=== PATIENT | female | born 1990 | race Asian ===

== ENCOUNTER 2020-09-24 19:46 | Inpatient (IN) ==
[2020-09-24 20:42] LABS: Urine Benzodiazepine Screen None Detected (None Detect); Urine Cannabinoids Screen None Detected (None Detect); Urine Opiates Screen None Detected (None Detect)
[2020-09-24] MEDS ORDERED: Lactated Ringers 1000 ml BAG 1,000 ML IV ONE (21:37)
[2020-09-24] MEDS ORDERED: Buffered Lidocaine 1% SYRIN 1 ml INTRADERM ONE (21:37)
[2020-09-25] MEDS ORDERED: Dibucaine 1% OINT 28.35 GM TUBE PR PRN (00:44)
[2020-09-25] MEDS ORDERED: Witch Hazel PAD JAR TOPICAL PRN (00:44)
[2020-09-25] MEDS ORDERED: Lactated Ringers 1000 ml BAG 1,000 ML IV SCH (01:00)
[2020-09-25] MEDS ORDERED: Oxytocin 10 UNITS/ML 1 ML VIAL ONE (02:11)
[2020-09-25 10:51] LABS: ABS Neutrophils 10.7 10^3/ul (1.5-7.7); Eosinophil % 0.1 %; Hematocrit 31 % (35-47); Hemoglobin 9.9 g/dL (12.0-16.0); Lymphocyte % 14.7 %; Mean Corpuscular HGB Conc 33 g/dL (31-36); Mean Corpuscular Hemoglobin 28 pg (27-31); Mean Corpuscular Volume 87 fL (80-97); Mean Platelet Volume 9.5 fL (7.4-10.4); Platelet Count 195 10^3/uL (150-450); Red Cell Distribution Width 16 % (10-15); White Blood Count 13.8 10^3/uL (3.5-10.8)
[2020-09-26 08:37] VITALS: BP 126/75
[2020-09-26] MEDS ORDERED: Tetan/Diph/Pertus SYR(Tdap) 0.5 ML SYR(BOOSTRIX) use SYR contains LATEX IM ONE (10:55)
== END 2020-09-26 11:40 | disposition home or self-care (01) | DRG 560 ==
LOC: MCHOBOUT 19:46 → MCHOB 20:46
PROVIDERS: ADMIT Obstetrics & Gynecology; ATTEND Obstetrics & Gynecology

== ENCOUNTER 2022-01-15 11:10 | Inpatient (IN) ==
[2022-01-15] MEDS ORDERED: Lactated Ringers 1000 ml BAG 1,000 ML IV ONE (12:51)
[2022-01-15] MEDS ORDERED: Buffered Lidocaine 1% SYRIN 1 ml INTRADERM ONE (12:51)
[2022-01-15] MEDS ORDERED: Lactated Ringers 1000 ml BAG 1,000 ML IV SCH ×2 (13:00→18:00)
[2022-01-15] MEDS ORDERED: Oxytocin in LR 20,000 MILLI.UNIT/1,000 ML BAG IV SCH ×2 (13:00→17:15)
[2022-01-15 13:39] LABS: Urine Benzodiazepine Screen None Detected (None Detect); Urine Cannabinoids Screen None Detected (None Detect); Urine Opiates Screen None Detected (None Detect)
[2022-01-15 14:21] LABS: ABS Eosinophils 0.1 10^3/ul (0-0.6); ABS Lymphocytes 1.9 10^3/ul (1.0-4.8); ABS Monocytes 0.5 10^3/ul (0-0.8); ABS Neutrophils 4.9 10^3/ul (1.5-7.7); Hematocrit 33 % (35-47); Hemoglobin 11.2 g/dL (12.0-16.0); Lymphocyte % 25.8 %; Mean Corpuscular HGB Conc 34 g/dL (31-36); Mean Corpuscular Hemoglobin 28 pg (27-31); Mean Corpuscular Volume 84 fL (80-97); Mean Platelet Volume 10.1 fL (7.4-10.4); Platelet Count 207 10^3/uL (150-450); Red Blood Count 3.98 10^6 /uL (3.70-4.87); Red Cell Distribution Width 17 % (10-15); White Blood Count 7.5 10^3/uL (3.5-10.8)
[2022-01-15] MEDS ORDERED: Witch Hazel PAD JAR TOPICAL PRN (17:11)
[2022-01-15] MEDS ORDERED: Glycerin ADULT 2.4 gm SUPP PR PRN (17:11)
[2022-01-15] MEDS ORDERED: Dibucaine 1% OINT 28.35 GM TUBE PR PRN (17:11)
[2022-01-15] MEDS ORDERED: ceFAZolin 1 GM ADVAN 1 GM in NS 0.9% 50 ML 50 ML IVPB ONE (17:27)
[2022-01-15] MEDS ORDERED: Lidocaine 1% MPF 5 ML VIAL ONE (17:36)
[2022-01-16 06:49] LABS: ABS Eosinophils 0.1 10^3/ul (0-0.6); ABS Lymphocytes 2.4 10^3/ul (1.0-4.8); ABS Monocytes 0.9 10^3/ul (0-0.8); ABS Neutrophils 7.4 10^3/ul (1.5-7.7); Eosinophil % 0.9 %; Hematocrit 32 % (35-47); Lymphocyte % 22.5 %; Mean Corpuscular HGB Conc 34 g/dL (31-36); Mean Corpuscular Hemoglobin 28 pg (27-31); Mean Corpuscular Volume 82 fL (80-97); Mean Platelet Volume 9.8 fL (7.4-10.4); Platelet Count 153 10^3/uL (150-450); Red Blood Count 3.93 10^6 /uL (3.70-4.87); Red Cell Distribution Width 17 % (10-15); White Blood Count 10.8 10^3/uL (3.5-10.8)
[2022-01-16 18:30] VITALS: BP 110/73
== END 2022-01-16 18:28 | disposition home or self-care (01) | DRG 560 ==
LOC: MCHOBOUT 11:10 → MCHOB 12:43
PROVIDERS: ADMIT Obstetrics & Gynecology; ATTEND Obstetrics & Gynecology